=== PATIENT | male | born 1995 | race Caucasian/White ===

== ENCOUNTER → 2017-01-26 06:32 | Day surgery (SDC) | payer OTHER ==
[~2017-01-26 06:32] MED LIST: Buffered Lidocaine 1% SYRIN* 3 ML/SYR SYRINGE INTRADERM ONE; Bupivacaine 0.25% EPI 200,000* 30 ML SDV ONE; Bupivacaine 0.25% SDV* 30 ML ONE; Dexamethasone IV* 4 MG/ML 1 ML (4 MG) IV SLOW PU ONE; Dexamethasone IV* 4 MG/ML 1 ML (4 MG) ONE; Famotidine IV* 10 MG/ML 2 ML (20 mg) IV ONE; Famotidine IV* 10 MG/ML 2 ML (20 mg) ONE; KETAMINE HCL* 50 MG/ML 10 ML VIAL ONE; Ketorolac INJ* 30 MG/ML 1 ML VIAL ONE; Levalbuterol 0.63MG/3ML NEB INH PRN; Lidocaine 2% PF* 5 ML VIAL ONE; Midazolam* 1 MG/ML 5 ML VIAL (5 MG) ONE; Ondansetron INJ* 2 MG/ML VIAL ONE; PROCHLORPERAZINE INJ 5 MG/ML 2 ML VIAL IV PRN; Propofol* 10 MG/ML 20 ML BTL IV PUSH ONE; Rocuronium* 10 MG/ML VIAL ONE; Scopolamine 1.5 mg* PATCH ONE; Scopolamine 1.5 mg* PATCH TRANSDERM ONE; Scopolomine PATCH Remove* 1 NOTE MISC PATCH OFF ONE; ceFAZolin 2 GM PREMIX(*) 2 GM/50 ML BAG IVPB ONE; ceFAZolin VIAL(*) 1 GM VIAL ONE; fentaNYL* 50 MCG/ML 2 ML VIAL (100 MCG VIAL) IV PRN; fentaNYL* 50 MCG/ML 2 ML VIAL (100 MCG VIAL) ONE; fentaNYL* 50 MCG/ML 5 ML VIAL (250 MCG VIAL) ONE; oxyCODONE/Acetamin 5/325 MG* TAB ONE; oxyCODONE/Acetamin 5/325 MG* TAB PO PRN
[2017-01-26 13:59] VITALS: BP 140/69
[2017-01-27 08:14] LABS: Manual Entry Verification BM; Rapid HIV INT CONT QC Line Present; Rapid HIV Kit Lot# F209005
--- NOTE | 2017-01-27 08:23 | OP ---
DATE OF OPERATION: 01/26/17 - [facility] DATE OF : 89 SURGEON: Sara Block MD NURSING SCHEDULER: KEVEN Brush. An licensed physical therapist assistant was needed throughout the entirety of the case to help with positioning, retraction, and was utilized throughout all portions of the case. ANESTHESIOLOGIST: Zachary Durbin MD ANESTHESIA: General PRE-OP DIAGNOSES: Left knee failed anterior cruciate ligament reconstruction with medial and lateral meniscal tears. POST-OP DIAGNOSES: Left knee failed anterior cruciate ligament reconstruction with medial and lateral meniscal tears as well as patellar chondrosis. OPERATIVE PROCEDURE: 1. ACL reconstruction using quad tendon autograft, this was revision. 2. Lateral meniscus repair. 3. Partial medial meniscectomy and partial lateral meniscectomy. 4. Chondroplasty of the patella. Please use 22 modifier due to the complexity of the case requiring C-arm as well as the extended time as this was a difficult case in revision setting as well as the patient's body habitus. INDICATIONS: Nicholas Grewal is a 21-year-old male who sustained a previous ACL injury in 2013 while he was playing football. He had a reconstruction using bone-patellar tendon-bone that was done at [facility]. He was doing well. This was done in transtibial technique. He then reinjured in July 2016. He is coming from [place] and he had MRIs from there. He was diagnosed with a retear as well as meniscal tears. He had persistent instability and catching and locking. He has failed conservative management. He would like to proceed with operative stabilization. Risks and benefits of surgery were discussed at length including but not limited to bleeding; infection; damage to nerves, vessels, surrounding structures; the wound nonhealing; persistent pain; need for further surgery; worsening arthritis; incomplete relief of symptoms; failure of the repair; failure of the graft; fracture; risk of DVT; risk of anesthesia. After reviewing the risks and benefits, he elected to proceed with surgery. TOURNIQUET TIME: 46 minutes at 250 mmHg. IMPLANTS USED: One SoftSilk 8 x 25 mm and two FAST-FIX 360s and one 4.5 cortical fully-threaded screw with the appropriate length with a washer. DESCRIPTION OF PROCEDURE: The patient was greeted in the preoperative area by the attending surgeon. The correct extremity was marked. Consent was confirmed. The patient was then brought back to the operating suite, where he was placed in the supine position on the operating table. He then underwent general anesthesia and an endotracheal intubation, which he tolerated without difficulty after which the patient was positioned appropriately on the bed. The knee was examined. He was found to have 0 to 130 degrees of motion, stable to varus and valgus stress, 2 to 3B Virgen, and negative posterior drawer. He had a very large body habitus, so the exam was a little bit difficult. He had trace effusion. The side post was placed and a 10-pound sand bag was placed at the floor of the bed to keep the knee in 90 degrees. After a miniature surgical pause, the knee was intraarticularly injected with 0.25% Marcaine with epi. The knee was prepped and draped in the usual sterile fashion beginning with chlorhexidine, soap, scrub, and alcohol wipe, and a final prep with ChloraPrep. The tourniquet was placed sterilely. After appropriate surgical pause indicating site, side, procedure, and administration of antibiotics, the Esmarch was used to exsanguinate the leg. The tourniquet was inflated to 250 mmHg. A midline incision centered over the distal quad was then made using a 10 blade. The soft tissues were carefully dissected to expose the paratenon and the quadriceps tendon. The center third of the 10 mm in width was then carefully resected for a tendon length of at least 7 cm and a bone block of at least 23 mm. The bone block was measured to be 10 x 23 mm. The graft was harvested in its entirety, was prepared on the back table by the attending surgeon. The licensed physical therapist assistant meanwhile was helping to close the quadriceps tendon with full-thickness bites using 0 Vicryl in an interrupted fashion for a watertight seal. The tendon was sized on the back table and a size 10 x 23 mm bone block and a size 11-mm tunnel width for the soft tissue portion. Once the graft was prepared, it was placed on tension on the back table. The skin was provisionally held together using a clamp of the quadriceps wound and then the portal incisions were made using the 11 blade. The scope was introduced through the joint. The joint was examined. There was evidence of a full-thickness tear of the ACL, which was done in a nonanatomic fashion. The scope was placed in the suprapatellar pouch and there were grade 2 changes with unstable flaps at the patellar tendon. The trochlear had grade 0 to 1 changes. The medial and lateral gutter were intact. The medial compartment was examined. There were grade 0 to 1 changes in the medial femoral condyle, grade 1 changes in the medial tibial plateau. There was an evidence of a parrot-beak tear that had slipped over and sitting in the gutter of the medial meniscus. This was then reduced and found to have a round bulbous and that was not amenable to repair. This was in the white-white zone. At this point, the arthroscopic biter and shaver were used to perform a partial meniscectomy in the medial knee. The knee was then placed in a figure-of-4 position. The lateral compartments were then examined. There were grade 2 changes to the tibial plateau with unstable fraying and grade 1 changes of the lateral femoral condyle. The lateral meniscus was probed and was found to have tearing, particularly posteriorly near the root, extending to the posterior aspect of the meniscus. A decision was made to try to repair this. There was an unstable small piece that was adjacent to that, that was trimmed back using the shaver. There was also unstable fraying in the body of the lateral meniscus, which was trimmed back using the shaver. The rasp was used to try to rough up the edges of the meniscus, which was in the borderline of the red- white zone and then FAST-FIX anchor was used to replace more portion closer to the root. Once this was passed, this was reduced. The decision was made to come back and check the meniscus again after the vast majority of the case was done to see if it still remained stable. After this portion of the case was complete, the knee was placed in full extension and a chondroplasty was done of the patellofemoral joint. There was bubbling cartilage that was present on some portions of the medial femoral condyle. The scope was brought back to the notch and the knee at 90 degrees. The lateral femoral condyle was then prepared using the shaver, the arthroscopic biter as well as the electrocautery device. The previous tunnel was identified and was found to be anterior and very superior. A starting awl was then used to shawna the correct location of the ACL. This was then checked by changing the portal from the lateral to the medial portal to make sure it was appropriately located. Once this was done, decision was made to complete the femoral tunnel at this point because the tibial tunnel will likely be more challenging due to the revision nature of the case and the fact that there was a metal screw in the tibia. The knee was placed in hyperflexion and under direct arthroscopic visualization, the Beath pin was advanced through the center of the footprint out through the IT band and skin. This was then overdrilled with a size 10 low- profile reamer to adjust this about 25 to 27 mm. All excess bone and debris were removed. The tunnel was then evacuated off all loose debris and fully evaluated and found to have a good solid back wall. At this point, the tunnel was then notched. A #2 Ti-Cron suture was passed to the free end of the Beath pin and advanced through the tunnel. This was then kept on gentle tension and attention was directed to the tibia. Tibial portion of this case was challenging due to the previous screw and the previous tunnel. A tip-to-tip guide was placed in the center of the footprint. A small incision was made just medial to the previous incision. Soft tissues were carefully dissected. The electrocautery device as well as the elevator was used to expose the tibia and care was taken to try to look for the previous screw or screw hole. At this point, the tip-to-tip guide was placed and the guidewire was then tried to pass; however, it was felt that it may be hitting the previous screw. Therefore, the x-ray was brought in to visualize where the screw was placed as well as where the current tunnel was. The previous screw was found to be buried deep under the bone and it was possible to avoid this by extending the angle of the guide. The guidewire placed was visualized with C- arm visualization to make sure it was in the appropriate location. It was found to be in anatomic position unlike the previous tunnel. This was then overdrilled with a size 11 mm full-bore reamer. The tunnel was then prepared by using the shaver and the ball rasp to allow for smooth edges. This was visualized and there were no loose debris, there was no screw that was evident in this tunnel. The graft was then brought back to the operating table and passed under direct arthroscopic visualization through the knee. It was secured , it was well seated into the femoral tunnel. This was then secured with an 8 x 25 mm screw with excellent purchase. The knee was then cycled 15 times and there were no changes in the graft placement. The knee was then placed in gentle flexion about 20 degrees with tension on the sutures. An attempt to try to place an interference screw, BioComposite screw, was then made; however, it was found that the tunnel due to its length that it may be pushing the graft up. The graft was visualized and found to be somewhat loose and lax; therefore, the screw was removed and an incision was made to place suspension fixation by using a washer post configuration. The Soompi 3.2 drill bit was then used to drill a bicortical screw distal to the tibial screw hole and the appropriate length 4.5 cortical screw with washer was then placed. The sutures from the soft tissue end of the graft were then passed around and tied using surgeon's knot with appropriate tension on the suture. Once these were passed and tied down, the screw was then advanced to two-finger tightness. At this point, the knee was taken through range of motion. The Virgen was assessed and was found to be stable. The scope was brought back to the joint and the graft was found to have good fixation with appropriate amount of tension. At this point, the knee was placed in figure-of-4 position and the lateral meniscus was visualized again. It was felt that the original suture fixation had fixed well; however, there was a need for second FAST-FIX. Therefore, a second and final FAST-FIX was placed in the body of the lateral meniscus, which allowed for excellent taoist of the meniscus just to restore the meniscus. Final images were obtained. All loose debris and fluids removed from the joint. The excess bone graft was placed in the patellar defect. This was oversewn with 0 Vicryl. The paratenon was closed with 2-0 Vicryl, subcutaneous tissues were closed with 2-0 Vicryl, and the quadriceps wound was closed with colin. The portals were closed with 3-0 nylon. The tibial wound was closed in layers with 2-0 Vicryl to close the fascial layers and then 2-0 Vicryl for the subcutaneous tissue, 3- 0 Monocryl for the skin. Sterile dressings were applied. The wound was injected with 30 cc of 0.25% Marcaine plain. A Cryo/Cuff as well as hinged knee brace locked at 0 degrees was then placed on the knee. The patient was awoken from anesthesia and transferred to PACU in stable condition. POSTOPERATIVE PLAN: He will be nonweightbearing for 4 weeks. Range of motion will be 0 to 70 degrees due to the lateral meniscal repair. He will be discharged on pain medication and antibiotics. He will start physical therapy on in [place]. He will follow up next week for a postoperative visit. DVT prophylaxis was considered, but deferred due to no pervious personal or family history. I will see the patient back next week. [id number]/[facility] #: [id number] MTDD
--- NOTE | 2017-01-30 15:22 | RAD ---
INDICATION: Left knee surgery. COMPARISON: There are no prior studies available for comparison. TECHNIQUE: 9 minutes and 26 seconds of intermittent fluoroscopic guidance were provided and 5 spot films of the left knee were obtained in the operating room. FINDINGS: Several surgical instruments are noted. The patient appears to be undergoing an anterior cruciate ligament repair. IMPRESSION: INTRAOPERATIVE CONTROL FILMS. CPT II Codes: 6045F
== END | disposition home or self-care (01) ==
LOC: OREAST 06:32
PROVIDERS: ATTEND Orthopaedic Surgery
DX: S83.512D Sprain of anterior cruciate ligament of left knee, subsequent encounter (principal); S83.242D Other tear of medial meniscus, current injury, left knee, subsequent encounter; S83.282D Other tear of lateral meniscus, current injury, left knee, subsequent encounter; Y93.61 Activity, american tackle football
CPT/HCPCS: 36415; 76000; 86703; 86706; 86803; 87340; 88304; A9270-GY; C1713; C1776; J0690; J1100; J1885; J2250; J2405; J2704; J3010